=== PATIENT | female | born 1975 | race Caucasian/White ===

== ENCOUNTER 2016-12-10 12:49 | Emergency (ER) | payer SELFPAY ==
[~2016-12-10] VITALS: Ht 160 cm; Wt 90.0 kg
[2016-12-10 12:57] VITALS: Ht 160 cm; Wt 90.0 kg
[2016-12-10] MEDS ORDERED: KETOROLAC 60 MG INJ IM STA (14:24)
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
[2016-12-10] MEDS ORDERED: ACET500C5 PO (16:48)
[2016-12-10] MEDS ORDERED: CYCL-319 PO (16:48)
[2016-12-10 16:57] VITALS: BP 137/82; PULSE 57; RESP 19; TEMP 98.4
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
== END 2016-12-10 17:00 | disposition home or self-care (01) ==
LOC: FTE 12:49
DX: S19.9XXA Unspecified injury of neck, initial encounter (principal); R07.9 Chest pain, unspecified; V49.40XA Driver injured in collision with unspecified motor vehicles in traffic accident, initial encounter
CPT/HCPCS: 71010; 72040; 72072; 72100; 96372; 99284; J1885